=== PATIENT | female | born 1970 | race Caucasian/White ===

== ENCOUNTER 2023-06-07 13:26 | Outpatient (CLI) | payer OTHER, SELFPAY ==
--- NOTE | 2023-06-07 13:30 | MM_ITS ---
WS: [id number] BILATERAL 3D TOMOSYNTHESIS DIGITAL SCREENING MAMMOGRAPHY WITH CAD CLINICAL INFORMATION: SCREENING HISTORY: Screening mammogram. No current complaints. COMPARISON: New baseline TECHNIQUE: Bilateral CC and MLO views. FINDINGS: The breasts are composed of heterogeneous fibroglandular density tissue, which can limit the detectio n of small underlying mass lesions. Dense nodular heterogeneous tissue upper outer RIGHT breast with asymmetric density measuring 10 mm. No comparisons. Additional partially obscured nodularity with lar gest ovoid nodule measuring 7 mm best seen on the cc view. Recommend further evaluation with RIGHT di agnostic mammography and ultrasound. Incidental punctate and lucent centered calcifications LEFT breast. IMPRESSION: MM/[place] [id number] BI-RADS: 0-Incomplete: Need additional imaging evaluation FOLLOW UP: Need Additional Imaging Recommend further evaluation with RIGHT diagnostic mammography and ultrasound u pper outer quadrant.
== END 2023-06-07 13:27 | disposition home or self-care (01) ==
LOC: MOBLMAM 13:34
PROVIDERS: Family Provider Family Medicine; PCP Family Medicine; Visit Provider Family Medicine
DX: Z12.31 Encounter for screening mammogram for malignant neoplasm of breast (principal)
CPT/HCPCS: 77063; 77067

== ENCOUNTER 2023-06-27 10:58 | Outpatient (CLI) | payer OTHER, SELFPAY ==
--- NOTE | 2023-06-27 11:00 | MM_ITS ---
WS: [id number] RIGHT 3D TOMOSYNTHESIS DIGITAL MAMMOGRAPHY WITH CAD CLINICAL INFORMATION: abnormal screening mammogram HISTORY: Additional views COMPARISON: 06/07/2023 TECHNIQUE: 3 views of the right breast were obtained. FINDINGS: The right breast is composed of heterogeneous fibroglandular density tissue, which can limit the dete ction of small underlying mass lesions. Incidental punctate calcifications. Persistent dense breast t issue with nodularity in the upper outer quadrant. Ultrasound is pending. ULTRASOUND BREAST RIGHT TECHNIQUE: Ultrasound right breast focused area of concern. CLINICAL INFORMATION: abnormal screening mammogram FINDINGS: Ultrasound RIGHT breast upper outer quadrant. A few small incidental cysts and complex cysts with int ernal debris in the area of concern upper outer quadrant. Small cysts measure up to 6 mm. No suspicio us lesions to target for biopsy. Recommend return to annual screening mammography. IMPRESSION: MM/[place] [id number] BI-RADS: 2-Benign FOLLOW UP: 1 Year Follow-up Recommend return to annual screening mammography. .
--- NOTE | 2023-06-27 11:12 | US_ITS ---
WS: [id number] RIGHT 3D TOMOSYNTHESIS DIGITAL MAMMOGRAPHY WITH CAD CLINICAL INFORMATION: abnormal screening mammogram HISTORY: Additional views COMPARISON: 06/07/2023 TECHNIQUE: 3 views of the right breast were obtained. FINDINGS: The right breast is composed of heterogeneous fibroglandular density tissue, which can limit the dete ction of small underlying mass lesions. Incidental punctate calcifications. Persistent dense breast t issue with nodularity in the upper outer quadrant. Ultrasound is pending. ULTRASOUND BREAST RIGHT TECHNIQUE: Ultrasound right breast focused area of concern. CLINICAL INFORMATION: abnormal screening mammogram FINDINGS: Ultrasound RIGHT breast upper outer quadrant. A few small incidental cysts and complex cysts with int ernal debris in the area of concern upper outer quadrant. Small cysts measure up to 6 mm. No suspicio us lesions to target for biopsy. Recommend return to annual screening mammography. IMPRESSION: US/US breast RT limited* [id number] BI-RADS: 2-Benign FOLLOW UP: 1 Year Follow-up Recommend return to annual screening mammography. .
== END 2023-06-27 10:59 | disposition home or self-care (01) ==
LOC: RAD 10:58
PROVIDERS: Family Provider Family Medicine; PCP Family Medicine; Visit Provider Family Medicine
DX: R92.8 Other abnormal and inconclusive findings on diagnostic imaging of breast (principal)
CPT/HCPCS: 76642; 77061; G0279

== ENCOUNTER → 2024-01-26 10:48 | Outpatient (BNVA) | payer OTHER, SELFPAY | PROVIDERS: Family Provider Family Medicine; PCP Family Medicine; Visit Provider Physician Assistant | DX: M17.12 Unilateral primary osteoarthritis, left knee; M23.304 Other meniscus derangements, unspecified medial meniscus, left knee | CPT/HCPCS: 73560; 73565 ==

== ENCOUNTER 2024-04-17 15:43 | Outpatient (CLI) | payer OTHER, SELFPAY ==
--- NOTE | 2024-04-17 16:00 | MR_ITS ---
WS: [id number] MRI LEFT KNEE HISTORY: left knee pain, meniscus derangement COMPARISON: 01/26/2024 radiograph Anterior cruciate ligament: Intact. Posterior cruciate ligament: Intact. There is a small amount of fluid adjacent to the PCL which may b e a small ganglion. Medial collateral ligament: Intact with mild displacement from the joint line and a small amount of f luid. Posterior lateral corner structures: Intact. Medial menisci: Radial tear body of the meniscus. Additional globular signal throughout the entire me niscal root with blunting of the free edge. Lateral meniscus: Intact. Normal signal, size and shape. Extensor mechanism: Distal quadriceps tendon and patellar tendons are intact. Fluid and soft tissue: Moderate size joint effusion. No Rodriguez's cyst. Osseous and articular structures: Patellofemoral compartment: Normal position of the patella. Mild diffuse chondromalacia. Small subcho ndral cystic changes at the patellar eminence are developing. Mild thinning and fatty replacement of the medial patellar retinaculum. Medial compartment: Moderate narrowing the medial compartment with moderate diffuse chondromalacia. S mall amount of marrow edema along the tibial plateau. Loss of the normal surface of the tibial platea u with a small defect. Lateral compartment: Mild to moderate narrowing of the lateral compartment. Mild chondromalacia. Thin juan r and fissuring of the cartilage. No marrow edema. MR/MR knee LT wo con* [id number] IMPRESSION: 1. Radial tear body of the medial meniscus. 2. Additional complex tear throughout the meniscal root posterior horn medial meniscus. Diffuse abnormal signal throughout the medial meniscal root. 3. Moderate size joint effusion. 4. Moderate internal derangement medial compartment with chondromalacia and a small amount of marrow edema along the tibial plateau. 5. Additional small cortical defect medial tibial plateau. 6. Mild to moderate internal derangement lateral compartment. 7. Mild diffuse chondromalacia patella. 8. Mild MCL sprain. MCL is displaced from medial joint line with fluid.
== END 2024-04-17 15:44 | disposition home or self-care (01) ==
LOC: RAD 15:43
PROVIDERS: Family Provider Family Medicine; PCP Family Medicine; Visit Provider Physician Assistant
DX: M17.12 Unilateral primary osteoarthritis, left knee (principal); M23.305 Other meniscus derangements, unspecified medial meniscus, unspecified knee; M25.569 Pain in unspecified knee; M25.462 Effusion, left knee; M22.42 Chondromalacia patellae, left knee
CPT/HCPCS: 73721

== ENCOUNTER → 2024-06-03 09:10 | Outpatient (BNVA) | payer OTHER, SELFPAY | PROVIDERS: Family Provider Family Medicine; PCP Family Medicine; Visit Provider Podiatrist Foot & Ankle Surgery | DX: M79.671 Pain in right foot (principal); M79.672 Pain in left foot; M72.2 Plantar fascial fibromatosis | CPT/HCPCS: 73630 ==